=== PATIENT | female | born 1950 | race Caucasian/White ===

== ENCOUNTER → 2017-05-24 09:04 | Outpatient (CLI) | payer MEDICARE, SELFPAY ==
[2017-05-24 12:15] LABS: Absolute Lymphocyte Count 2.43 X10^3/ul (0.83-4.51); Absolute Neutrophil Count 4.9 X10^3/uL (2.0-7.7); Basophil% 0.4 % (0-1); Hematocrit 39.6 % (37-47); Hemoglobin 12.8 g/dl (12.0-15.0); Lymphocyte # 2.43 X10^3/ul (4.0); Lymphocyte % 29.5 % (19-41); Mean Corp Hgb Conc 32.3 g/gl (32-36); Mean Corpuscular Hgb 29.8 pg (27.0-32.0); Mean Corpuscular Volume 92.3 fL (81-99); Mean Platelet Vol. 10.8 fl (6.2-12.0); Neutrophil # 4.86 X10^3/uL (2.7-7.7); Neutrophil % 58.9 % (47-70); Platelet Count 301 K/mm3 (150-450); RBC Distribution Width CV 12.8 % (11.6-14.6); RBC Distribution Width SD 41.9 fl (35.1-43.9); Red Blood Count 4.29 M/mm3 (4.2-5.4); White Blood Count 8.3 K/mm3 (4.4-11.0)
[2017-05-24 12:16] LABS: Basophil# 0.03 X10^3/uL; Eosinophil# 0.25 X10^3/uL; Monocyte# 0.66 X10^3/uL
[2017-05-24 12:23] LABS: AST(SGOT) 23 U/L (15-37); Alanine Aminotransfer ALT/SGPT 41 U/L (13-56); Albumin, Serum 3.7 g/dL (3.2-5.0); Alkaline Phosphatase 93 U/L (45-117); Anion Gap 10 (5-15); BUN 22 mg/dL (7-18); BUN/Creat Ratio 21.2 RATIO (10-20); Calcium,Total 9.3 mg/dL (8.5-10.1); Chloride 104 mmol/L (98-107); Cholesterol 157 mg/dL (200); Creatinine, Serum 1.04 mg/dL (0.55-1.02); EST Glomerular Filtration Rate 57 mL/min (>60); Est Glom Filt Rate - Afr Amer 68 mL/min (>60); Globulin 3.8 g/dL (2.2-4.2); Glucose 93 mg/dL (70-110); High Density Lipoprotein 47 mg/dL; Potassium 4.7 mmol/L (3.5-5.1); Protein, Total 7.5 g/dL (6.4-8.2); Sodium Level 140 mmol/L (136-145); Triglycerides 153 mg/dL; Very Low Density Lipoprotein 31 mg/dL (5-40)
[2017-05-24 12:29] LABS: Vitamin D,25 Hydroxy 35.2 ng/mL (19.95-100.01)
[2017-05-24 12:39] LABS: POSITIVE COUNT NO; POSITIVE DIFFERENTIAL NO; POSITIVE MORPHOLOGY NO
== END ==
PROVIDERS: Family Provider Family Medicine; PCP Family Medicine; Visit Provider Family Medicine
DX: I10 Essential (primary) hypertension (principal); E55.9 Vitamin D deficiency, unspecified; E78.5 Hyperlipidemia, unspecified
CPT/HCPCS: 36415; 80053; 80061; 82306; 85025

== ENCOUNTER → 2018-11-19 09:16 | Outpatient (CLI) | payer MEDICARE, SELFPAY ==
[2018-11-19 12:16] LABS: Absolute Lymphocyte Count 2.08 X10^3/uL (0.83-4.51); Absolute Neutrophil Count 4.8 X10^3/uL (2.0-7.7); Basophil# 0.05 X10^3/uL; Basophil% 0.6 % (0-1); Eosinophils% 3.7 % (0-5); Hematocrit 38.5 % (37-47); Hemoglobin 12.2 g/dL (12.0-15.0); Lymphocyte # 2.08 X10^3/ul (4.0); Lymphocyte % 25.7 % (19-41); Mean Corp Hgb Conc 31.7 g/dL (32-36); Mean Corpuscular Hgb 29.8 pg (27.0-32.0); Mean Corpuscular Volume 93.9 fL (81-99); Mean Platelet Vol. 10.4 fl (6.2-12.0); Monocyte# 0.85 X10^3/uL; Monocyte% 10.5 % (0-10); NRBC Flagged by Analyzer 0 % (0-5); Neutrophil # 4.81 X10^3/uL (2.7-7.7); Neutrophil % 59.4 % (47-70); Platelet Count 301 K/mm3 (150-450); RBC Distribution Width CV 12.6 % (11.6-14.6); RBC Distribution Width SD 43.8 fl (35.1-43.9); White Blood Count 8.1 K/mm3 (4.4-11.0)
[2018-11-19 13:00] LABS: ALB/GLOB Ratio 0.9 RATIO (0.9-2.4); AST(SGOT) 17 U/L (15-37); Alanine Aminotransfer ALT/SGPT 26 U/L (13-56); Albumin, Serum 3.5 g/dL (3.2-5.0); Alkaline Phosphatase 93 U/L (45-117); Anion Gap 6 (5-15); BUN 22 mg/dL (7-18); Calcium,Total 9.3 mg/dL (8.5-10.1); Chloride 108 mmol/L (98-107); Cholesterol 183 mg/dL (200); Creatinine, Serum 1.16 mg/dL (0.55-1.02); EST Glomerular Filtration Rate 50 mL/min (>60); Est Glom Filt Rate - Afr Amer 60 mL/min (>60); Globulin 3.7 g/dL (2.2-4.2); Glucose 91 mg/dL (74-106); High Density Lipoprotein 53 mg/dL; Potassium 4.8 mmol/L (3.5-5.1); Protein, Total 7.2 g/dL (6.4-8.2); Sodium Level 138 mmol/L (136-145); Triglycerides 239 mg/dL; Very Low Density Lipoprotein 48 mg/dL (5-40)
== END ==
PROVIDERS: Family Provider Family Medicine; PCP Family Medicine; Visit Provider Family Medicine
DX: I10 Essential (primary) hypertension (principal); E78.5 Hyperlipidemia, unspecified
CPT/HCPCS: 36415; 80053; 80061; 85025

== ENCOUNTER 2019-03-30 07:22 | Day surgery (SDC) | payer MEDICARE, SELFPAY ==
[2019-03-06 09:37] VITALS: BMI 34.5
--- NOTE | 2019-03-07 10:39 | HP_ITS ---
Intake Vital Signs 03/06/19 Height 5 ft 2 in 03/06/19 Weight: 189 lb 03/06/19 Body Mass Index (BMI) 34.5 03/06/19 Blood Pressure 152/77 H 03/06/19 Blood Pressure Location Rt brachial 03/06/19 Blood Pressure Position Sitting 03/06/19 Respiratory Rate 18 03/06/19 Pulse Rate 80 03/06/19 Pulse Source Monitor 03/06/19 Temperature 98.0 F 03/06/19 Temperature Source Oral 03/06/19 Pulse Ox 95 03/06/19 Oxygen Delivery Method room air Intake Visit Reasons: Hemorrhoids Guidance Counselor Required: No Is patient in pain?: No Allergies latex Allergy (Intermediate, Verified 03/06/19 09:41) rash Medications Hydrocortisone 2.5%/lidocaine 5% suppository (cmpd) See Rx Instructions .ROUTE .MEDSUPPLY #16 ea 03/06/19 [Rx Confirmed 03/06/19] aspirin 81 mg tablet,delayed release 81 mg PO DAILY 03/06/19 [History Confirmed 03/06/19] atorvastatin 80 mg tablet 80 mg PO DAILY 03/06/19 [History Confirmed 03/06/19] cholecalciferol (vitamin D3) 400 unit capsule 400 unit PO DAILY 03/06/19 [History Confirmed 03/06/19] citalopram 40 mg tablet 40 mg PO DAILY tab 03/06/19 [History Confirmed 03/06/19] lisinopril 40 mg tablet 40 mg PO DAILY 03/06/19 [History Confirmed 03/06/19] multivitamin capsule 1 cap PO DAILY 03/06/19 [History] omega-3 fatty acids 1,000 mg capsule 1,000 mg PO DAILY 03/06/19 [History Confirmed 03/06/19] spironolactone 25 mg tablet 25 mg PO DAILY 03/06/19 [History Confirmed 03/06/19] vitamin E 200 unit capsule 400 unit PO DAILY cap 03/06/19 [History Confirmed 03/06/19] [facility] Medical History Arthritis (Acute) Depression with anxiety (Acute) Hemorrhoids (Acute) Hyperlipidemia (Acute) Hypertension (Chronic) Surgical History History of carpal tunnel release (Acute) History of hysterectomy (Acute) History of tubal ligation (Acute) Family History Father Arthritis Hypertension High cholesterol CVA (cerebral vascular accident) Mother Heart disease Aunt Breast cancer Social History (Updated 03/07/19 @ 10:39 by Rosendo White MD) Smoking Status: Never smoker alcohol intake: never substance use type: does not use HPI HPI HPI: RADHA BAKER, is a 68 F who presents to the office today for HPI HPI Surgical H&P: Yes HPI: RADHA BAKER, is a 68 F who presents to the office today for Evaluation of hemorrhoids that have been coming in and out. This is been going on for approximately 2 months. She has not noticed any blood is been irritating for her. She has been using [id number]-[id number] remedies without much effect. She has had no discomfort. She has not had a colonoscopy. ROS General General: No weight change, appetite, fatigue, colon cancer, breast cancer or weakness HEENT HEENT: No difficulty swallowing, eye injury, eye surgery, swollen glands or hoarseness Endo Endocrine: No thyroid disease, diabetes mellitus, thyroid cancer, Hair loss, heat intolerance or cold intolerance Skin Skin: No rash or changing moles Breast Breast: No left breast lump, right breast lump, nipple discharge, breast pain, abnormal mammogram, abnormal US or breast enlargement Musc Musculoskeletal: Yes arthritis; no back problems, rheumatoid arthritis, gout or joint pain Cardio Cardiovascular: Yes murmur and high blood pressure; no pacemaker, heart disease, atrial fibrillation, heart attack, heart stent, palpitations, shortness of breat with exertion or chest pain Psych Psychiatric: Yes depression and anxiety; no hearing voices Resp Respiratory: No shortness of breath, No sleep apnea, No cough, No COPD, No asthma, No emphysema, No wheezing Gastro Gastrointestinal: No abdominal pain, No nausea or vomiting, Yes diarrhea, No constipation, No blood in stool, No acid reflux, Yes hemorrhoids, No ulcers, No gallbladder problem, No black,tarry stools Doron Hematologic: No blood thinners, No blood disorders, No bleeding, No anemia, No blood clots Neuro Neurologic: No system reviewed and no additional complaints, except as docu, No as per HPI, No abnormal walking, No abnormal hearing, No abnormal movements, No abnormal speech, No behavioral changes, No burning sensations, No confusion, No seizure-like activity, No unsteadiness, No dizziness, No localized weakness, No frequent falls, No headache(s), No lack of coordination, No loss of vision, No memory loss, Yes numbness, No other visual disturbances, No radiating pain, No restless legs, No sensory deficit, No fainting, Yes tingling, No tremor(s), No weakness, No other Exam Const General: no acute distress, well developed, well hydrated Orientation: oriented to person, oriented to place, oriented to time [facility] Head: normocephalic, atraumatic Ears: external ears normal Mouth: moist mucous membranes Eyes Sclera: sclerae normal Pupils: normal by confrontation Neck Neck: no lymphadenopathy noted Neck mass: No Thyroid: thyroid normal, symmetrical Chest Chest palpation & inspection: normal inspection of the chest Breast Palpation: No nipple discharge Resp Effort & Inspection: normal respiratory effort Auscultation: clear to auscultation bilaterally Percussion: percussion normal Cardio Rate: regular rate Rhythm: regular rhythm Heart Sounds: murmur GI Palpation: soft, no hepatosplenomegaly, no masses, nontender Rectal Exam: other Other: Rectal exam Noticeable internal and external hemorrhoids are felt no masses. No signs of rectal fissure. Her hemorrhoids do look slightly irritated. Extrem General: normal to inspection, no clubbing, cyanosis or edema Assessment & Plan Problems 1. Encounter for screening for malignant neoplasm of colon Z12.11 2. Grade I hemorrhoids K64.0 Plan I have discussed the above with the patient. I have offered the patient colonoscopy for evaluation. I have explained the risks/benefits of the procedure and described the procedure. I have discussed the risks with the patient, including but not limited to: infection, bleeding, perforation of the GI tract requiring emergency surgery, inability to complete the procedure, injury to any internal organs, complications of anesthesia, etc. - the patient understands and agrees to proceed. I have answered all the patient's questions to the patient's satisfaction and the patient has no further questions. The patient has been given instructions for the colon cleansing preparation. We will use a steroid suppository to see if we can decrease the inflammation around her hemorrhoids. Medications New: Hydrocortisone 2.5%/lidocaine 5% suppository (cmpd) As directed-Twice daily per rectum 16 ea 2RF K64.8 Coding Level of Care Code Off vis,new,level 3 Diagnoses Encounter for screening for malignant neoplasm of colon Z12.11 Grade I hemorrhoids K64.0 ??Hemorrhoid type: first degree 03/07/19 1039 <Electronically signed by Rosendo perdomo MD> Date _ Rosendo White MD I have re-examined the patient. There are no clinical changes since date of exam.
[2019-03-30 07:57] VITALS: BP 120/63; PULSE 78; RESP 14; TEMP 36.6; O2SAT 97; BMI 33.1
[2019-03-30] MEDS: Lactated Ringers 1,000 ML 100 ML IV (08:12)
--- NOTE | 2019-03-30 08:47 | OP.COLON_ITS ---
Patient Name: Keri Bennett Procedure Date: 03/30/2019 8:24 AM Date of : 1950 Age: 69 Procedure: Colonoscopy Indications: Screening for colorectal malignant neoplasm Providers: Rosendo White MD Referring MD: Aaron Mak Medicines: See the Anesthesia note for documentation of the administered medications Patient Profile: This is a 69 year old female. Refer to note in patient chart for documentation of history and physical. Last Colonoscopy: none. The patient's first colonoscopy is today. Complications: No immediate complications. Procedure: Pre-Anesthesia Assessment: - Prior to the procedure, a History and Physical was performed, and patient medications and allergies were reviewed. The patient's tolerance of previous anesthesia was also reviewed. The risks and benefits of the procedure and the sedation options and risks were discussed with the patient. All questions were answered, and informed consent was obtained. Prior Anticoagulants: The patient has taken aspirin, last dose was 7 days prior to procedure. ASA Grade Assessment: III - A patient with severe systemic disease. After reviewing the risks and benefits, the patient was deemed in satisfactory condition to undergo the procedure. After I obtained informed consent, the scope was passed under direct vision. Throughout the procedure, the patient's blood pressure, pulse, and oxygen saturations were monitored continuously. The colonoscope was introduced through the anus and advanced to the cecum, identified by appendiceal orifice and ileocecal valve. The colonoscopy was performed without difficulty. The patient tolerated the procedure well. The quality of the bowel preparation was good. Scope In: 8:32:54 AM Scope Withdrawal Time 0 hours 6 minutes 2 seconds Scope Out: 8:42:44 AM Total Procedure Duration Time 0 hours 9 minutes 50 seconds Findings: Hemorrhoids were found on perianal exam. Non-bleeding internal hemorrhoids were found during retroflexion. The hemorrhoids were Grade I (internal hemorrhoids that do not prolapse). The exam was otherwise without abnormality. Impression: - Hemorrhoids found on perianal exam. - Non-bleeding internal hemorrhoids. - The examination was otherwise normal. - No specimens collected. Recommendation: - Discharge patient to home. - Resume previous diet. - Use hydrocortisone suppository 25 mg 1 per rectum once a day for 1 month. - Repeat colonoscopy in 10 years for screening purposes. - Continue present medications. Procedure Code(s): --- Professional --- 12796, Colonoscopy, flexible; diagnostic, including collection of specimen(s) by brushing or washing, when performed (separate procedure) Diagnosis Code(s): --- Professional --- Z12.11, Encounter for screening for malignant neoplasm of colon K64.0, First degree hemorrhoids CPT copyright 2017 [employer]. All rights reserved. The codes documented in this report are preliminary and upon braille coder review may be revised to meet current compliance requirements. MD Rosendo Parker MD 03/30/2019 8:47:29 AM This report has been signed electronically. Number of Addenda: 0 Note Initiated On: 03/30/2019 8:24 AM
[2019-03-30 08:48] VITALS: BP 114/76; BP 120/63; PULSE 63; RESP 16; TEMP 37.2; O2SAT 97
[2019-03-30 08:53] VITALS: BP 120/63; BP 97/75; PULSE 64; RESP 16; O2SAT 96
[2019-03-30 08:58] VITALS: BP 113/69; BP 120/63; PULSE 61; RESP 16; O2SAT 96
[2019-03-30 09:03] VITALS: BP 110/73; BP 120/63; PULSE 62; RESP 16; TEMP 36.5; O2SAT 96
[2019-03-30 09:20] VITALS: BP 120/63
== END 2019-03-30 09:32 | disposition home or self-care (01) ==
LOC: EN 07:22 → AC 07:22
PROVIDERS: Family Provider Family Medicine; PCP Family Medicine; Referring Provider Family Medicine; Visit Provider Surgery
PROC: 0DJD8ZZ Inspection of Lower Intestinal Tract, Via Natural or Artificial Opening Endoscopic (ICD-10-PCS; CPT 45378; principal; 2019-03-30 08:40)
DX: Z12.11 Encounter for screening for malignant neoplasm of colon (principal); K64.0 First degree hemorrhoids; I10 Essential (primary) hypertension; E78.5 Hyperlipidemia, unspecified; F32.9 Major depressive disorder, single episode, unspecified; F41.9 Anxiety disorder, unspecified; M19.90 Unspecified osteoarthritis, unspecified site; Z79.82 Long term (current) use of aspirin; Z79.899 Other long term (current) drug therapy
CPT/HCPCS: G0121; J7120

== ENCOUNTER → 2019-05-20 11:30 | Outpatient (CLI) | payer MEDICARE, SELFPAY ==
[2019-05-20 12:30] LABS: Absolute Lymphocyte Count 2.31 X10^3/uL (0.83-4.51); Absolute Neutrophil Count 3.9 X10^3/uL (2.0-7.7); Basophil# 0.06 X10^3/uL; Basophil% 0.8 % (0-1); Eosinophil# 0.23 X10^3/uL; Eosinophils% 3.2 % (0-5); Hematocrit 37.2 % (37-47); Hemoglobin 11.7 g/dL (12.0-15.0); Lymphocyte # 2.31 X10^3/ul (4.0); Lymphocyte % 32.5 % (19-41); Mean Corp Hgb Conc 31.5 g/dL (32-36); Mean Corpuscular Hgb 28.7 pg (27.0-32.0); Mean Corpuscular Volume 91.4 fL (81-99); Mean Platelet Vol. 10.9 fl (6.2-12.0); Monocyte# 0.55 X10^3/uL; Monocyte% 7.7 % (0-10); NRBC Flagged by Analyzer 0 % (0-5); Neutrophil # 3.94 X10^3/uL (2.7-7.7); Neutrophil % 55.5 % (47-70); Platelet Count 293 K/mm3 (150-450); RBC Distribution Width CV 12.8 % (11.6-14.6); Red Blood Count 4.07 M/mm3 (4.2-5.4); White Blood Count 7.1 K/mm3 (4.4-11.0)
[2019-05-20 12:48] LABS: ALB/GLOB Ratio 0.9 RATIO (0.9-2.4); AST(SGOT) 18 U/L (15-37); Alanine Aminotransfer ALT/SGPT 32 U/L (13-56); Albumin, Serum 3.6 g/dL (3.2-5.0); Alkaline Phosphatase 94 U/L (45-117); Anion Gap 2 (5-15); BUN 21 mg/dL (7-18); BUN/Creat Ratio 19.3 RATIO (10-20); Calcium,Total 9.8 mg/dL (8.5-10.1); Chloride 106 mmol/L (98-107); Cholesterol 178 mg/dL (200); Creatinine, Serum 1.09 mg/dL (0.55-1.02); EST Glomerular Filtration Rate 53 mL/min (>60); Est Glom Filt Rate - Afr Amer 64 mL/min (>60); Globulin 3.8 g/dL (2.2-4.2); Glucose 80 mg/dL (74-106); High Density Lipoprotein 51 mg/dL; Potassium 4.5 mmol/L (3.5-5.1); Protein, Total 7.4 g/dL (6.4-8.2); Sodium Level 137 mmol/L (136-145); Triglycerides 196 mg/dL; Very Low Density Lipoprotein 39 mg/dL (5-40)
== END ==
PROVIDERS: Family Provider Family Medicine; PCP Family Medicine; Visit Provider Family Medicine
DX: I10 Essential (primary) hypertension (principal); E78.5 Hyperlipidemia, unspecified
CPT/HCPCS: 36415; 80053; 80061; 85025

== ENCOUNTER 2020-07-08 15:16 | Outpatient (RCR) | payer MEDICARE, SELFPAY ==
[2019-10-14 13:50] VITALS: BMI 30.2
[2020-07-08] MEDS: COVID-19 VACC, MRNA(PFIZER)/PF 30 MCG/0.3 ML SYRINGE IM (12:09)
[2020-07-29] MEDS: COVID-19 VACC, MRNA(PFIZER)/PF 30 MCG/0.3 ML SYRINGE IM (11:58)
== END 2020-07-08 23:59 ==
LOC: IMMUN 15:16
PROVIDERS: PCP Family Medicine; Visit Provider Family Medicine
DX: Z23 Encounter for immunization (principal)
CPT/HCPCS: 0001A; 0002A; 91300

== ENCOUNTER → 2021-09-22 | Outpatient (CLI) | payer MEDICARE, SELFPAY ==
--- NOTE | 2021-09-22 11:40 | BRBX_PTH ---
PATIENT: RADHA BAKER LOC: [facility] U#:[id number] AGE/SX: 71/F ROOM: RE09/22/[address]: Dr. Rosendo White MD : 1950 BED: DIS: 09/22/2021 SPEC #: [id number] RECD: 09/22/21 12:07 STATUS: JAZZY REPam #: [id number] JASON: 09/22/21 11:[address]: Rosendo White DEPT: SURGICAL PATHOLOGY RECD BY: Yari Gar ENTERED: 09/22/21 13:09 SP TYPE: BREAST BX OTHR DR: Dr. Aaron Mak, DO Tissues: Left breast, NOS Procedures: Surgery Specimen Level IV HEADER OPERATION: Left stereotactic breast biopsy PRE-OP DIAGNOSIS: Left breast 1 o?clock, middle depth microcalcifications TISSUE SUBMITTED: Left breast core tissue ISCHEMIC TIME: 2 minutes FIXATION TIME: 56 hours MICROSCOPIC DIAGNOSIS Left breast at 1 o?clock, stereotactic biopsy: Intraductal hyperplasia without atypia, multi-focal. Intraductal papilloma with clustered microcalcifications. Fibrocystic change. Focal fat necrosis with associated microcalcifications. AM:miranda 09/25/2021 MICROSCOPIC DESCRIPTION Slides are reviewed. GROSS DESCRIPTION Received is one container labeled with the patient's name and not further designated. The specimen consists of multiple irregular fragments of yellow-white soft tissue that in aggregate measure 9 x 3 x 0.2 cm. The specimen is totally submitted in three cassettes. / AM:miranda 09/22/2021 TC:5 CPT: 83676
--- NOTE | 2021-09-22 11:55 | HP.PCM_ITS ---
History and Physical Date of Admission: 09/22/21 HISTORY AND PHYSICAL - BREAST COMPLAINT ? Keri Bennett 1950 ? ? REFERRING PHYSICIAN: Aaron Mak DO ? CHIEF COMPLAINT: Mammographic microcalcification found on diagnostic imaging of breast (primary encounter diagnosis) ? HPI: The patient is a 71 year old female with a complaint of an abnormal mammogram. The patient had a mammogram without ultrasound on 09/12/21 which demonstrated IMPRESSION: SUSPICIOUS FINDING - BIOPSY SHOULD BE CONSIDERED The grouped pleomorphic calcifications in the left breast are suspicious of malignancy. ?A stereotactic biopsy is recommended.: ? ? The patient denies a history of breast masses. She does perform a self breast exam routinely. She notes no skin changes. She denies nipple discharge. She notes no axillary masses. She notes no family history of breast problems. She notes no significant breast trauma or breast difficulties in the past. ? ? ? The patient is being seen by me today at the request of Dr. Aaron Mak DO for my opinion and advice regarding Mammographic microcalcification found on diagnostic imaging of breast (primary encounter diagnosis). ? PAST MEDICAL HISTORY PAST MEDICAL HISTORY Diagnosis Date ? Excessive or frequent menstruation ? ? Leiomyoma of uterus, unspecified ? ? Other and unspecified hyperlipidemia ? ? ? PAST SURGICAL HISTORY PAST SURGICAL HISTORY Procedure Laterality Date ? DELIVERY ONLY ? ? ? , low cervical ? LIGATE FALLOPIAN TUBE ? 1982 ? PAST SURGICAL HISTORY OF ? 04/22/1991 ? bilat carpal tunnel ? PAST SURGICAL HISTORY OF ? 02/21/2008 ? right carpal tunnel /removed ganglion cyst ? REVISE MEDIAN N/CARPAL TUNNEL SURG Bilateral ? ? 1986 & 1987 ? TOTAL ABDOMINAL HYSTERECT W/WO RMVL TUBE OVARY ? 1992 ? Hysterectomy, ELIGIO ? ? ? CURRENT MEDICATIONS Current Outpatient Medications Medication Sig Dispense Refill ? lisinopril (ZESTRIL, PRINIVIL) 40 mg tablet Take 40 mg by mouth once daily. ? ? ? [place]-3 Fatty Acids, FISH OIL, (FISH OIL) 360-1,200 mg cap Take 1 capsule by mouth daily with breakfast. ? ? ? VITAMIN E ACETATE ORAL Take by mouth. ? ? ? Cholecalciferol, Vitamin D3, (VITAMIN D) 25 mcg (1,000 unit) cap Take 1,000 Units by mouth once daily. ? ? ? psyllium husk (DAILY FIBER ORAL) Take by mouth. ? ? ? aspirin 81 mg chewable tablet Take 81 mg by mouth once daily. ? ? ? atorvastatin calcium(LIPITOR 40 MG TAB) Take 80 mg by mouth. ? ? 0 ? CITALOPRAM 20 MG TAB Take 40 mg by mouth. ? ? 0 ? multivitamins(DAILY MULTIVITAMIN TAB) Take one(1) tablet daily. ? 0 ? losartan potassium(COZAAR 100 MG TAB) Take one(1) tablet daily. ? 0 ? calcium carbonate(CALCIUM 600 600 MG (1,500 MG) TAB) Take one(1) tablet two(2) times daily. ? 0 ? OTC PRODUCT Estroblend, Take one tablet daily ? 0 ? No current facility-administered medications for this visit. ? ? ALLERGIES: Patient has no known allergies. ? PERSONAL HISTORY: SOCIAL HISTORY Social History ? Tobacco Use ? Smoking status: Never Smoker ? Smokeless tobacco: Former User Substance Use Topics ? Alcohol use: No ? Drug use: No ? FAMILY HISTORY: FAMILY HISTORY FAMILY HISTORY Problem Relation Age of Onset ? Stroke Father ? ? Lipids Father ? ? ? REVIEW OF SYMPTOMS: The review of systems data was entered by the nurse and reviewed by me ? Nursing Notes: Mary Lousumaya Granado 09/12/2021 2:42 PM Signed REVIEW OF SYSTEMS: General: The patient denies fatigue, denies weight loss, NOTES weight gain, denies feeling hot, and denies feelings of cold. Eyes: The patient denies glaucoma, denies eye injury/surgery, wears glasses or contacts. Ear/Nose/Throat: The patient denies allergies, denies hayfever, denies ear infections, and denies bloody noses. Cardiovascular: The patient denies chest pain, denies heart disease, NOTES high blood pressure,denies cardiac stent, denies prior heart attack, denies irregular heart beat, denies high cholesterol, denies poor circulation, denies heart failure, other cardiac issues, denies claudication, denies cold feet, denies peripheral arterial stent. Respiratory: The patient denies tuberculosis, denies pneumonia, denies frequent cough, denies pulmonary embolism, denies shortness of breath, and denies coughing up blood. Gastrointestinal: The patient denies difficulty swallowing, denies acid reflux, denies ulcers, denies vomiting, denies jaundice/hepatitis, denies gallbladder problems, denies black or tarry stools, NOTED hemorrhoids, denies bleeding from rectum, denies diverticulitis, denies constipation, denies diarrhea, denies loss of stool control, and denies hernias. Kidney/Bladder: The patient denies kidney stones, denies urine infections, and denies bloody urine. Skin: The patient denies a history of skin cancer, denies bleeding/changing moles, and denies a history of skin rash. Neurologic: The patient denies a history of epilepsy/convulsions, denies headaches, denies head/spinal injuries, and denies stroke/TIA. Psychiatric: The patient denies psychiatric medications, NOTES depression, and denies voices, denies substance abuse. Endocrine: The patient denies thyroid disorders, denies diabetes, and denies hormonal problems. Hematologic: The patient denies a history of bruising, denies bleeding, and denies anemia, denies blood clots. Infections: The patient denies a history of measles and mumps, denies rheumatic fever, and denies sexually transmitted diseases. Musculoskeletal: The patient denies back pain/injury, denies back problems, denies sciatica, denies knee/foot trouble, NOTES arthritis, or denies gout. ? ? When was patient's last Mammogram screening? 09/12/2021 ? Last Colonoscopy: 1999 ? Mary Lou Granado ? PHYSICAL EXAMINATION: ? General: The patient is 71 year old female, well nourished, well hydrated in no acute distress. The patient is oriented to time, place, and person. ? VITALS: Blood pressure 148/77, pulse 83, temperature 36.4 ?C (97.5 ?F), height 157.5 cm (5' 2), weight 82.6 kg (182 lb), SpO2 99 %. Body mass index is 33.29 kg/m?. ? HEENT: Normal cephalic, ataumatic, pupils are equally round, sclera are anicte cata, mucous membranes are moist, oropharynx is clear. Neck has no masses, asymmetry or lymphadenopathy. Thyroid is unremarkable. ? Respiratory: Clear to auscultation and percussion. Normal respiratory excursion and pattern. ? Cardiac: Examination is regular rate and rhythm. ? Abdominal exam: Soft, nontender, with no palpable masses. No hepatosplenomegaly. No palpable hernias. ? Rectal exam: exam deferred Extremities: no clubbing, cyanosis or edema. No adenopathy. ? Breast: Visual inspection reveals no retractions, nipple inversion, or skin changes. Palpation of the right breast reveals no dominant or suspicious masses. Palpation of the left breast reveals no dominant or suspicious masses. Axillary exam demonstrates no suspicious masses in either the left or right axilla. There is no nipple discharge expressed from either the left or right breast. ? LABORATORY VALUES: As Noted ? RADIOLOGIC STUDIES: As Noted ? Assessment IMPRESSION: Mammographic microcalcification found on diagnostic imaging of breast (primary encounter diagnosis) ? PLAN: I plan to perform a stereotactic biopsy of the left breast. The planned surgical procedure was discussed extensively with the patient. The risks, benefits, anticipated outcomes and possible complications were mentioned. My staff has also explained the procedure in understandable terms and the patient was given the option to take printed material concerning the planned procedure. The patient had the opportunity to ask questions concerning the planned procedure. The patient freely consents to the planned procedure. ? ? Diagnoses: (R92.0) Mammographic microcalcification found on diagnostic imaging of breast (primary encounter diagnosis) ? A letter was sent to Dr. Aaron Mak DO indicating the above finding for this patient. ? Return to Clinic: The patient is instructed to follow-up with me 1 week post operatively. ? COVID (Procedure Consent) Procedure Criteria ? Procedure Criteria: Yes Elective The surgeon/proceduralist and patient have discussed in detail the risk of exposure to and/or potential harm posed by the COVID-19 virus with having a surgery/procedure at this time versus the risk of? delaying the surgery/procedure. It is not possible to know either the risk of delaying the surgery or procedure or chance of getting an infection with perfect accuracy, but a joint decision was made between the patient and the surgeon/proceduralist ?to proceed at this time with the scheduled surgery/procedure as indicated on the consent form. ? ? Rosendo White III, MD I have re-examined the patient. There are no clinical changes since date of exam.
--- NOTE | 2021-09-22 11:56 | PCM.OPRPT ---
Problems Associated Problem List Diagnoses (1) Microcalcifications of the breast: Report of Operation Date of Procedure: 09/22/21 Pre-Operative Diagnosis: Microcalcifications left breast Post-Operative Diagnosis: Same Surgery/Procedure Performed:: Left stereotactic breast biopsy Surgeon: Rosendo White novelty chain maker: None Type of Anesthesia: Local Description of Procedure: Patient was brought into the mammography unit placed in the prone position on the fissure table. The left breast was brought down through the opening. Cc view was obtained. ?15 degree views were obtained. I targeted on the microcalcifications. I prepped the breast with Betadine. Injected 1% lidocaine plain. A skin valerie was made. Needle was placed in the prefire position 2 more stereo views were obtained showing the area to be adequately targeted. Fired the needle and took 360 degrees circumferential biopsies. X-ray my specimen microcalcifications were identified. Backed the needle off 7 mm placed a Clare louie butterfly clip into the biopsy cavity. Remove the needle x-ray of the breast clip was identified. Patient was taken out of the unit Steri-Strips were applied standard mammograms were obtained sterile dressings were applied and the patient tolerated the procedure well. Admit VTE Documentation VTE Present on Admission: No VTE Mechan Device Prophylaxis: None VTE Pharm Prophylaxis ordered?: No Reason prophylaxis not ordered:: Treatment Not Indicated
== END | disposition home or self-care (01) ==
PROVIDERS: PCP Family Medicine; Referring Provider Surgery; Visit Provider Surgery
DX: D24.2 Benign neoplasm of left breast (principal); N60.92 Unspecified benign mammary dysplasia of left breast; N60.12 Diffuse cystic mastopathy of left breast; N64.1 Fat necrosis of breast; E78.5 Hyperlipidemia, unspecified; Z79.82 Long term (current) use of aspirin; Z79.899 Other long term (current) drug therapy
CPT/HCPCS: 19081; 88305; J7050

== ENCOUNTER 2022-03-30 09:49 | Day surgery (SDC) | payer MEDICARE, SELFPAY ==
--- NOTE | 2022-03-30 | BRBX_PTH ---
PATIENT: RADHA BAKER LOC: [facility] [place] U#:[id number] AGE/SX: 72/F ROOM: RE03/30/[address]: Dr. Rosendo White MD : 1950 BED: DIS: 03/30/2022 SPEC #: [id number] RECD: 03/30/22 15:50 STATUS: JAZZY REQ #: [id number] JASON: 03/30/22 00:[address]: Rosendo White DEPT: SURGICAL PATHOLOGY RECD BY: Francesco Oakes ENTERED: 04/02/22 10:26 SP TYPE: BREAST BX OTHR DR: Dr. Aaron Mak, DO Tissues: Left breast, NOS Procedures: Surgery Specimen Level V HEADER OPERATION: Breast excisional breast biopsy with wire localization PRE-OP DIAGNOSIS: Intraductal papilloma of left breast TISSUE SUBMITTED: Left breast biopsy MICROSCOPIC DIAGNOSIS Left breast, excisional biopsy with wire localization: Intraductal hyperplasia with focal atypia. Changes consistent with previous biopsy site. Focal microcalcifications. Negative for malignancy. MARK:miranda 04/04/2022 COMMENT Please make reference to previous specimen ([id number]) left breast at 1 o?clock, stereotactic core biopsy with diagnosis of ?intraductal hyperplasia without atypia, multifocal and intraductal papilloma with clustered microcalcifications.? Case has been reviewed in consultation with Dr. Brock who concurs with the above diagnosis. IDC:AM MICROSCOPIC DESCRIPTION Slides are reviewed. GROSS DESCRIPTION Received in fixative is one container labeled with the patient's name and designated left breast. The specimen consists of a piece of fibroadipose tissue with needle localization measuring 5.5 x 3.5 x 2.5 cm. The specimen is not oriented. It is inked and serially sectioned and reveals yellow adipose cut surfaces without any mass lesion. A focal, indurated area is noted at one margin measuring 0.5 cm in greatest dimension. The entire specimen is submitted in nine cassettes from end to another end. Sections will be submitted after additional fixation. / MARK:miranda 04/02/2022 TC:5 CPT: 71221
--- NOTE | 2022-03-30 09:13 | PCM.HP.BLA ---
History and Physical Date of Admission: 03/30/22 HISTORY AND PHYSICAL - BREAST COMPLAINT ? Keri Bennett 1950 ? ? REFERRING PHYSICIAN: Rosendo White MD ? CHIEF COMPLAINT: Intraductal papilloma of breast, left (primary encounter diagnosis) ? ? HPI: The patient is a 72 year old female with a complaint of Intraductal papilloma of breast, left (primary encounter diagnosis) Patient is status post a stereotactic breast biopsy on her left breast completed at [facility] on 09/22/2021. ?This came back as an intraductal hyperplasia without atypia. ?There was also an intraductal papilloma with a cluster of microcalcifications fibrocystic changes there is no signs of malignancy. ? PAST MEDICAL HISTORY PAST MEDICAL HISTORY Diagnosis Date ? Depression ? ? Essential hypertension ? ? Excessive or frequent menstruation ? ? Leiomyoma of uterus, unspecified ? ? Other and unspecified hyperlipidemia ? ? Papilloma of breast 01/2022 ? ? PAST SURGICAL HISTORY PAST SURGICAL HISTORY Procedure Laterality Date ? BX OF BREAST; INCISIONAL Left 09/22/2021 ? DELIVERY ONLY ? ? ? , low cervical ? LIGATE FALLOPIAN TUBE ? 1982 ? PAST SURGICAL HISTORY OF ? 04/22/1991 ? bilat carpal tunnel ? PAST SURGICAL HISTORY OF ? 02/21/2008 ? right carpal tunnel /removed ganglion cyst ? REVISE MEDIAN N/CARPAL TUNNEL SURG Bilateral ? ? 1986 & 1987 ? TOTAL ABDOMINAL HYSTERECT W/WO RMVL TUBE OVARY ? 1992 ? Hysterectomy, ELIGIO ? ? ? CURRENT MEDICATIONS Current Outpatient Medications Medication Sig Dispense Refill ? lisinopril (ZESTRIL, PRINIVIL) 40 mg tablet Take 40 mg by mouth once daily. ? ? ? [place]-3 Fatty Acids, FISH OIL, 360-1,200 mg cap Take 1 capsule by mouth daily with breakfast. ? ? ? VITAMIN E ACETATE ORAL Take by mouth. ? ? ? Cholecalciferol, Vitamin D3, 25 mcg (1,000 unit) cap Take 1,000 Units by mouth once daily. ? ? ? psyllium husk (DAILY FIBER ORAL) Take by mouth. ? ? ? aspirin 81 mg chewable tablet Take 81 mg by mouth once daily. ? ? ? atorvastatin calcium(LIPITOR 40 MG TAB) Take 80 mg by mouth. ? ? 0 ? CITALOPRAM 20 MG TAB Take 40 mg by mouth. ? ? 0 ? calcium carbonate(CALCIUM 600 600 MG (1,500 MG) TAB) Take one(1) tablet two(2) times daily. ? 0 ? multivitamins(DAILY MULTIVITAMIN TAB) Take one(1) tablet daily. ? 0 ? OTC PRODUCT Estroblend, Take one tablet daily ? 0 ? No current facility-administered medications for this visit. ? ? ALLERGIES: Latex, Natural Rubber ? PERSONAL HISTORY: SOCIAL HISTORY Social History ? Tobacco Use ? Smoking status: Never ? Smokeless tobacco: Former Vaping Use ? Vaping Use: Never used Substance Use Topics ? Alcohol use: No ? Drug use: No ? FAMILY HISTORY: FAMILY HISTORY FAMILY HISTORY Problem Relation Age of Onset ? Stroke Father ? ? Lipids Father ? ? ? REVIEW OF SYSTEMS: ?General:???The patient denies?fatigue, denies?weight loss, NOTES?weight gain, denies?feeling hot, and denies?feelings of cold. ?Eyes: ?The patient denies?glaucoma, denies?eye injury/surgery, wears?glasses or contacts. ?Ear/Nose/Throat: ?The patient denies?allergies, denies?hayfever, denies?ear infections, and denies?bloody noses. ?Cardiovascular: ?The patient denies?chest pain, denies?heart disease, NOTES?high blood pressure,denies?cardiac stent, denies?prior heart attack, denies?irregular heart beat, denies?high cholesterol, ?denies?poor circulation, denies?heart failure, other cardiac issues, denies?claudication, denies?cold feet, denies?peripheral arterial stent. ?Respiratory: ?The patient denies?tuberculosis, denies?pneumonia, denies?frequent cough, denies?pulmonary embolism, denies?shortness of breath, and denies?coughing up blood. ?Gastrointestinal: ?The patient denies?difficulty swallowing, denies?acid reflux, denies?ulcers, denies?vomiting, denies?jaundice/hepatitis, denies?gallbladder problems, denies?black or tarry stools, NOTED?hemorrhoids, denies?bleeding from rectum, denies?diverticulitis, denies?constipation, denies?diarrhea, denies?loss of stool control, and denies?hernias. ?Kidney/Bladder: ?The patient denies?kidney stones, denies?urine infections, and denies?bloody urine. ?Skin: ?The patient denies?a history of skin cancer, denies?bleeding/changing moles, and denies?a history of skin rash. ?Neurologic: ?The patient denies?a history of epilepsy/convulsions, denies?headaches, denies?head/spinal injuries, and denies?stroke/TIA. ?Psychiatric: ?The patient denies?psychiatric medications, NOTES?depression, and denies?voices, denies?substance abuse. ?Endocrine: ?The patient denies?thyroid disorders, denies?diabetes, and denies?hormonal problems. ?Hematologic: ?The patient denies?a history of bruising, denies?bleeding, and denies?anemia, denies?blood clots. ?Infections: ?The patient denies?a history of measles and mumps, denies?rheumatic fever, and denies?sexually transmitted diseases. ?Musculoskeletal: ?The patient denies?back pain/injury, denies?back problems, denies?sciatica, denies?knee/foot trouble, NOTES?arthritis, or denies?gout. ? ? When was patient's last Mammogram screening??09/12/2021 ? ?Last Colonoscopy: ?1999? PHYSICAL EXAMINATION: ? General: The patient is 72 year old female, well nourished, well hydrated in no acute distress. The patient is oriented to time, place, and person. ? VITALS: Blood pressure 151/83, pulse 101, temperature 36.7 ?C (98 ?F), height 157.5 cm (5' 2), weight 85.3 kg (188 lb), SpO2 96 %. Body mass index is 34.39 kg/m?. ? HEENT: Normal cephalic, ataumatic, pupils are equally round, sclera are anicteric, mucous membranes are moist, oropharynx is clear. Neck has no masses, asymmetry or lymphadenopathy. Thyroid is unremarkable. ? Respiratory: Clear to auscultation and percussion. Normal respiratory excursion and pattern. ? Cardiac: Examination is regular rate and rhythm. ? Abdominal exam: Soft, nontender, with no palpable masses. No hepatosplenomegaly. No palpable hernias. ? Rectal exam: exam deferred Extremities: no clubbing, cyanosis or edema. No adenopathy. ? Breast: Visual inspection reveals no retractions, nipple inversion, or skin changes. Palpation of the right breast reveals no dominant or suspicious masses. Palpation of the left breast reveals no dominant or suspicious masses. Axillary exam demonstrates no suspicious masses in either the left or right axilla. There is no nipple discharge expressed from either the left or right breast. ? LABORATORY VALUES: As Noted ? RADIOLOGIC STUDIES: As Noted ? Assessment IMPRESSION: Intraductal papilloma of breast, left (primary encounter diagnosis) ? PLAN: I plan to perform a stereotactic wire localization excisional biopsy of the left breast. The planned surgical procedure was discussed extensively with the patient. The risks, benefits, anticipated outcomes and possible complications were mentioned. My staff has also explained the procedure in understandable terms and the patient was given the option to take printed material concerning the planned procedure. The patient had the opportunity to ask questions concerning the planned procedure. The patient freely consents to the planned procedure. ? ? Diagnoses: (D24.2) Intraductal papilloma of breast, left (primary encounter diagnosis) ? ? ? Return to Clinic: The patient is instructed to follow-up with me 1 week post operatively. ? Anticipated Surgical Procedure/ CPT Code: left preoperative stereotactic guided needle placement - 28637 EXCISION BREAST LESION - WITH SPECIMEN MAMMOGRAPHY, 79258-455, [id number] ? Anticipated Anesthetic: General ? Patient weight: Blood pressure 151/83, pulse 101, temperature 36.7 ?C (98 ?F), height 157.5 cm (5' 2), weight 85.3 kg (188 lb), SpO2 96 %. BMI: Body mass index is 34.39 kg/m?. ? Planned antibiotic: Ancef 2gm IVPB habilitation assistant to OR ? SCDs needed: Yes ? Water Supply Technician Needed: Yes ? Pre Op Clearance: None ? Anticoagulation: No ? Diabetic: No ? Location: [facility] ? ? Rosendo White III, MD I have examined the patient and the H&P has been reviewed. There are no clinical changes since date of exam.
--- NOTE | 2022-03-30 10:30 | BI_ITS ---
SURGICAL BREAST SPECIMEN RADIOGRAPH CLINICAL: Document presence of tissue clip marker in biopsy specimen. FINDINGS: Specimen shows presence of tissue clip marker. Electronically Signed: Tico Montague MD at 13:35 EST , BI/Breast Biopsy Specimen IMPRESSION: undefined
[2022-03-30] MEDS: Lactated Ringers 1,000 ML 15 ML IV (10:35)
[2022-03-30 10:39] VITALS: BP 144/77; PULSE 75; RESP 18; TEMP 36.7; O2SAT 99; BMI 33.2
[2022-03-30] MEDS: Cefazolin 2 GM in 0.9% Normal Saline 100 ML IV (12:48)
--- NOTE | 2022-03-30 12:55 | PCM.OPRPT ---
Problems Associated Problem List Diagnoses (1) Intraductal papilloma of left breast: Report of Operation Date of Procedure: 03/30/22 Pre-Operative Diagnosis: Intraductal papilloma left breast Post-Operative Diagnosis: Same Surgery/Procedure Performed:: Wire localization excisional left breast biopsy Description of Surgical Findings:: Patient was brought into the mammography unit placed in the prone position on the fissure table the left breast was brought down through the opening. Cc view was obtained. Clip was identified. Posterior -15 degree views were obtained. Prepped the breast with Betadine. I targeted on the clip. I injected 1% lidocaine plain. Placed the Kopan's wire approximately a centimeter away from the clip. 2 more stereo views were obtained showing the area to be adequately targeted. She was taken out of the machine and standard mammograms were obtained. She was then transferred to the operating room. In the operating room under excellent general anesthetic left breast was sterilely prepped and draped in the usual fashion. Local was injected incision was made in the upper outer quadrant of the breast. Electrocautery was used to dissect down using the guidewire as my guide removing the previous biopsy site in its entirety. It was placed into the bag and sent to mammography x-ray was obtained showing the clip and the guidewire to be in place. This was sent to pathology for permanent sectioning. I used electrocautery for good my stasis I injected more local deep within the breast. I used a 2-0 Vicryl to bring the subcu tissue back together deep dermal stitches of 3-0 Vicryl then running 4-0 Monocryl were used. Dermabond was applied. Sterile dressings were applied. The patient tolerated the procedure well. Surgeon: oRsendo White customer relationship specialist: Nelia Amador Type of Anesthesia: General Anesthesiologist: Nura Hook Admmario VTE Documentation VTE Present on Admission: No VTE Mechan Device Prophylaxis: SCD's VTE Pharm Prophylaxis ordered?: No Reason prophylaxis not ordered:: Treatment Not Indicated
[2022-03-30] MEDS: Bupivacaine 0.25% 30 ML Vial (13:24)
--- NOTE | 2022-03-30 13:26 | DCINST_ITS ---
Discharge Instructions Procedure Breast Biopsy Diet Discharge Diet: No restrictions Activity Discharge Activity: Return to Normal Activity May shower in (days): 3 Dressing / Incision Remove Dressing in: 3 days (leave Dermabond in place.) Follow Up Care Please Follow Up With: Rosendo White MD When: Call office to schedule an appointment to be seen in one week. Test Results: Test results from this visit will be discussed in further detail at your follow- up appointment, if applicable. Discharge Plan Admission Attending Provider: Rosendo White Primary Care Provider: Aaron Mak Discharge Orders/Prescriptions Prescriptions: New oxycodone 5 mg capsule 5 mg PO Q4H PRN (Reason: pain) 7 Days Qty: 20 0RF No Action citalopram 40 mg tablet 40 mg PO DAILY atorvastatin 80 mg tablet 80 mg PO DAILY lisinopril 40 mg tablet 40 mg PO DAILY aspirin 81 mg tablet,delayed release (DR/EC) 81 mg PO DAILY cholecalciferol (vitamin D3) 400 unit capsule 400 unit PO DAILY vitamin E 200 unit capsule 400 unit PO DAILY multivitamin capsule capsule 1 cap PO DAILY omega-3 fatty acids [Fish Oil Concentrate] 1,000 mg capsule 1,000 mg PO DAILY Referrals / Follow Up: Rosendo White MD [Med Staff - Active Staff] - Aaron Mak DO [Primary Care Provider] - Disposition Disposition (needs filled in before D/C Order can be placed): Home, Self Care
[2022-03-30 13:40] VITALS: BP 115/57; PULSE 83; RESP 16; TEMP 36.1; O2SAT 96
[2022-03-30 13:45] VITALS: BP 115/57; BP 116/71; PULSE 81; RESP 16; O2SAT 96
[2022-03-30 14:00] VITALS: BP 115/57; BP 119/72; PULSE 82; RESP 16; TEMP 36.2; O2SAT 95
[2022-03-30 14:20] VITALS: BP 115/57; BP 134/77; PULSE 80; RESP 16; TEMP 36.2; O2SAT 94
== END 2022-03-30 14:35 | disposition home or self-care (01) ==
LOC: SDC 09:52 → AC 09:54
PROVIDERS: PCP Family Medicine; Referring Provider Surgery; Visit Provider Surgery
PROC: (CPT 19120; principal; 2022-03-30 11:45)
DX: N60.92 Unspecified benign mammary dysplasia of left breast (principal); I10 Essential (primary) hypertension; E78.49 Other hyperlipidemia; F32.A Depression, unspecified; Z79.82 Long term (current) use of aspirin; Z79.899 Other long term (current) drug therapy
CPT/HCPCS: 19120; 00400; 19281; 76098; 88305; 88307; J7120; J2405

== ENCOUNTER → 2022-12-25 | Outpatient (CLI) | payer MEDICARE, SELFPAY ==
[2022-12-25 14:48] LABS: Absolute Lymphocyte Count 2.56 X10^3/uL (0.83-4.51); Absolute Neutrophil Count 4.5 X10^3/uL (2.0-7.7); Basophil# 0.05 X10^3/uL; Basophil% 0.6 % (0-1); Eosinophils% 2.5 % (0-5); Hematocrit 36.9 % (37-47); Hemoglobin 11.8 g/dL (12.0-15.0); Lymphocyte # 2.56 X10^3/ul (0.83-4.51); Lymphocyte % 32.1 % (19-41); Mean Corpuscular Hgb 29.6 pg (27.0-32.0); Mean Corpuscular Volume 92.5 fL (81-99); Mean Platelet Vol. 10.7 fl (6.2-12.0); Monocyte# 0.65 X10^3/uL; Monocyte% 8.2 % (0-10); NRBC Flagged by Analyzer 0 % (0-5); Neutrophil # 4.49 X10^3/uL (2.7-7.7); Neutrophil % 56.3 % (47-70); Platelet Count 304 K/mm3 (150-450); RBC Distribution Width CV 13.1 % (11.6-14.6); RBC Distribution Width SD 44.5 fl (35.1-43.9); Red Blood Count 3.99 M/mm3 (4.2-5.4)
[2022-12-25 15:01] LABS: AST(SGOT) 18 U/L (15-37); Alanine Aminotransfer ALT/SGPT 27 U/L (13-56); Albumin, Serum 3.4 g/dL (3.2-5.0); Alkaline Phosphatase 105 U/L (45-117); Anion Gap 9 (5-15); BUN 21 mg/dL (7-18); BUN/Creat Ratio 21.6 RATIO (10-20); Calcium,Total 9.2 mg/dL (8.5-10.1); Chloride 103 mmol/L (98-107); Cholesterol 183 mg/dL (200); Creatinine, Serum 0.97 mg/dL (0.55-1.02); EST Glomerular Filtration Rate 60 mL/min (>60); Est Glom Filt Rate - Afr Amer 73 mL/min (>60); Globulin 3.5 g/dL (2.2-4.2); Glucose 80 mg/dL (74-106); High Density Lipoprotein 59 mg/dL; Potassium 4.8 mmol/L (3.5-5.1); Protein, Total 6.9 g/dL (6.4-8.2); Sodium Level 135 mmol/L (136-145); Triglycerides 206 mg/dL; Very Low Density Lipoprotein 41 mg/dL (5-40)
[2022-12-25 15:07] LABS: PTHIN 47.4 pg/mL (18.4-80.1)
[2022-12-25 15:18] LABS: Microalbumin,Random Urine 5.7 mg/L (NO RANGE EST.); Microalbumin:Creatinine Ratio 15.5 mg/g CRE (<30 mg/g CRE)
== END | disposition home or self-care (01) ==
PROVIDERS: PCP Family Medicine; Referring Provider Family Medicine; Visit Provider Family Medicine
DX: E78.5 Hyperlipidemia, unspecified (principal); N18.31 Chronic kidney disease, stage 3a
CPT/HCPCS: 36415; 80053; 80061; 82043; 82570; 83970; 85025

== ENCOUNTER → 2023-06-19 | Outpatient (CLI) | payer MEDICARE, SELFPAY | END | disposition home or self-care (01) | LOC: BFHLAB 10:23 → LABSPEC 10:24 | PROVIDERS: PCP Family Medicine; Visit Provider Family Medicine | DX: N39.0 Urinary tract infection, site not specified (principal) | CPT/HCPCS: 87086 ==

== ENCOUNTER → 2024-04-16 | Outpatient (CLI) | payer MEDICARE, SELFPAY ==
[2024-04-16 12:09] LABS: Absolute Lymphocyte Count 2.12 X10^3/uL (0.83-4.51); Absolute Neutrophil Count 6.4 X10^3/uL (2.0-7.7); Basophil# 0.06 X10^3/uL; Basophil% 0.6 % (0-1); Eosinophil# 0.14 X10^3/uL; Eosinophils% 1.5 % (0-5); Hematocrit 38.2 % (37-47); Lymphocyte # 2.12 X10^3/ul (0.83-4.51); Lymphocyte % 22.3 % (19-41); Mean Corp Hgb Conc 31.4 g/dL (32-36); Mean Corpuscular Hgb 29.1 pg (27.0-32.0); Mean Corpuscular Volume 92.7 fL (81-99); Mean Platelet Vol. 10.5 fl (6.2-12.0); Monocyte# 0.73 X10^3/uL; Monocyte% 7.7 % (0-10); NRBC Flagged by Analyzer 0 % (0-5); Neutrophil # 6.42 X10^3/uL (2.7-7.7); Neutrophil % 67.5 % (47-70); Platelet Count 320 K/mm3 (150-450); RBC Distribution Width CV 12.7 % (11.6-14.6); RBC Distribution Width SD 43.2 fl (35.1-43.9); Red Blood Count 4.12 M/mm3 (4.2-5.4); White Blood Count 9.5 K/mm3 (4.4-11.0)
[2024-04-16 12:23] LABS: ALB/GLOB Ratio 0.9 RATIO (0.9-2.4); AST(SGOT) 16 U/L (15-37); Alanine Aminotransfer ALT/SGPT 29 U/L (13-56); Albumin, Serum 3.5 g/dL (3.2-5.0); Alkaline Phosphatase 102 U/L (45-117); Anion Gap 5 (5-15); BUN 19 mg/dL (7-18); BUN/Creat Ratio 18.6 RATIO (10-20); Calcium,Total 9.6 mg/dL (8.5-10.1); Chloride 106 mmol/L (98-107); Cholesterol 169 mg/dL (200); Creatinine, Serum 1.02 mg/dL (0.55-1.02); EST Glomerular Filtration Rate 57 mL/min (>60); Est Glom Filt Rate - Afr Amer 69 mL/min (>60); Globulin 4.1 g/dL (2.2-4.2); Glucose 96 mg/dL (74-106); High Density Lipoprotein 54 mg/dL; Potassium 4.2 mmol/L (3.5-5.1); Protein, Total 7.6 g/dL (6.4-8.2); Sodium Level 137 mmol/L (136-145); Triglycerides 265 mg/dL; Very Low Density Lipoprotein 53 mg/dL (5-40)
== END | disposition home or self-care (01) ==
LOC: BFHLAB 09:40
PROVIDERS: PCP Family Medicine; Visit Provider Family Medicine
DX: I10 Essential (primary) hypertension (principal); E78.5 Hyperlipidemia, unspecified
CPT/HCPCS: 36415; 80053; 80061; 85025